=== PATIENT | male | born 1940 | race Caucasian/White ===

== ENCOUNTER 2021-09-25 14:26 | Outpatient (CLI) | payer MEDICARE, OTHER | END 2021-09-25 14:27 | disposition home or self-care (01) | LOC: CSHULT 14:26 | PROVIDERS: ATTEND Urology | DX: N40.0 Benign prostatic hyperplasia without lower urinary tract symptoms (principal); R31.29 Other microscopic hematuria; E29.1 Testicular hypofunction; N28.1 Cyst of kidney, acquired; N28.9 Disorder of kidney and ureter, unspecified | CPT/HCPCS: 74018; 76770 ==

== ENCOUNTER 2023-12-07 10:09 | Outpatient (CLI) | payer MEDICARE, OTHER | END 2023-12-07 10:10 | disposition home or self-care (01) | LOC: CSHULT 10:09 | PROVIDERS: ATTEND Urology | DX: R31.29 Other microscopic hematuria (principal); N20.0 Calculus of kidney; N28.1 Cyst of kidney, acquired | CPT/HCPCS: 76770 ==

== ENCOUNTER 2024-07-06 12:04 | Outpatient (CLI) | payer MEDICARE, OTHER | END 2024-07-06 12:05 | disposition home or self-care (01) | LOC: CSHRAD 12:04 | PROVIDERS: ATTEND Family Medicine Sports Medicine | DX: J20.8 Acute bronchitis due to other specified organisms (principal); M25.551 Pain in right hip; M16.11 Unilateral primary osteoarthritis, right hip | CPT/HCPCS: 71046 ==

== ENCOUNTER 2024-08-17 10:43 | Outpatient (CLI) | payer MEDICARE, OTHER | END 2024-08-17 10:44 | disposition home or self-care (01) | LOC: CSHULT 10:43 | PROVIDERS: ATTEND Urology | DX: N40.1 Benign prostatic hyperplasia with lower urinary tract symptoms (principal); N20.0 Calculus of kidney; R31.29 Other microscopic hematuria | CPT/HCPCS: 76770 ==

== ENCOUNTER 2025-09-12 08:11 | Outpatient (CLI) | payer MEDICARE, OTHER | END 2025-09-12 08:12 | disposition home or self-care (01) | LOC: CSHSLEEP 08:11 | PROVIDERS: ATTEND Family Medicine | DX: G47.33 Obstructive sleep apnea (adult) (pediatric) (principal); R53.83 Other fatigue; R51.9 Headache, unspecified | CPT/HCPCS: 95811 ==